=== PATIENT | male | born 1980 ===

== ENCOUNTER 2016-08-13 16:35 | Emergency (ER) | payer MEDICAID, OTHER ==
[2016-08-13 16:44] VITALS: BP 155/94; PULSE 100; RESP 24; TEMP 98.2; O2SAT 94
[2016-08-13] MEDS ORDERED: TDAP VACCINE 0.5 ML SUS IM ONE ×2 (17:15→17:18)
[2016-08-13] MEDS ORDERED: IBUPROFEN 600 MG TAB PO ONE (17:15)
[2016-08-13] MEDS ORDERED: IBUPROFEN 600 MG TAB ONE (17:18)
== END 2016-08-13 17:49 | disposition home or self-care (01) | DRG 605 ==
LOC: ED 16:35
DX: S61.412A Laceration without foreign body of left hand, initial encounter (principal)
CPT/HCPCS: 12002; 90471; 90715; 99283; G0168; A6402

== ENCOUNTER 2016-08-18 21:00 | Emergency (ER) | payer MEDICAID, OTHER ==
[2016-08-18 21:10] VITALS: BP 156/100; PULSE 79; RESP 18; TEMP 96.5; O2SAT 95
[2016-08-18] MEDS ORDERED: CEPHALEXIN 250 MG/5 ML BOTTLE ONE (21:18)
[2016-08-18] MEDS ORDERED: CEPHALEXIN 250 MG/5 ML BOTTLE PO ONE (21:19)
== END 2016-08-18 21:28 | disposition home or self-care (01) | DRG 950 ==
LOC: ED 21:00
DX: S61.412D Laceration without foreign body of left hand, subsequent encounter (principal)
CPT/HCPCS: 99282

== ENCOUNTER 2017-03-05 07:07 | Emergency (ER) | payer OTHER ==
[2017-03-05 07:18] VITALS: BP 144/91; PULSE 93; RESP 20; TEMP 96.2; O2SAT 99
[2017-03-05] MEDS ORDERED: ONDANSETRON HCL 4 MG/2 ML SOL IV ONE (07:27)
[2017-03-05] MEDS ORDERED: SODIUM CHLORIDE 0.9% 1000 ML SOL IV ONE (07:27)
[2017-03-05 07:49] LABS: ALBUMIN 3.2 gm/dl (3.4-5.0); CALCIUM 8.3 mg/dl (8.5-10.1); POTASSIUM 3.9 mMol/L (3.5-5.1)
[2017-03-05 07:52] LABS: HEMATOCRIT 49 % (39-53); MEAN CORPUSCULAR HGB CONC 35.3 gm/dl (32.0-36.0); MEAN CORPUSCULAR VOLUME 92 fL (80-100)
[2017-03-05 08:21] LABS: BASOPHILS % (MANUAL) 1 % (0-3); EOSINOPHILS % (MANUAL) 6 % (0-9); LYMPHOCYTES % (MANUAL) 22 % (10-50); NORMAL RBCS NORMAL RBCS
== END 2017-03-05 08:00 | disposition home or self-care (01) | DRG 392 ==
LOC: ED 07:07
DX: A08.4 Viral intestinal infection, unspecified (principal)
CPT/HCPCS: 80053; 85007; 85027; 99283

== ENCOUNTER 2017-05-22 10:40 | Emergency (ER) | payer OTHER ==
[2017-05-22 11:05] VITALS: RESP 16; TEMP 98.1
[2017-05-22 11:48] VITALS: BP 142/87; PULSE 83; O2SAT 99
== END 2017-05-22 11:37 | disposition home or self-care (01) | DRG 563 ==
LOC: ED 10:40
DX: S93.402A Sprain of unspecified ligament of left ankle, initial encounter (principal)
CPT/HCPCS: 73600; 99282

== ENCOUNTER 2017-07-18 16:40 | Emergency (ER) | payer OTHER ==
[2017-07-18 17:08] VITALS: RESP 20
[2017-07-18 17:55] VITALS: BP 132/85; PULSE 94; TEMP 98; O2SAT 95
== END 2017-07-18 19:04 | disposition home or self-care (01) | DRG 392 ==
LOC: ED 16:40
DX: A08.4 Viral intestinal infection, unspecified (principal); Z72.0 Tobacco use
CPT/HCPCS: 99282

== ENCOUNTER 2017-08-14 19:48 | Emergency (ER) | payer OTHER ==
[2017-08-14 20:32] VITALS: BP 161/108; PULSE 90; RESP 20; TEMP 97.4; O2SAT 99
[2017-08-14] MEDS ORDERED: CYCLOBENZAPRINE 10 MG TAB PO ONE (21:05)
[2017-08-14] MEDS ORDERED: CYCLOBENZAPRINE 10 MG TAB ONE (21:09)
== END 2017-08-14 21:13 | disposition home or self-care (01) | DRG 552 ==
LOC: ED 19:48
DX: M54.9 Dorsalgia, unspecified (principal)
CPT/HCPCS: 72120; 99282; A9270-GY

== ENCOUNTER 2017-10-21 11:36 | Emergency (ER) | payer OTHER ==
[2017-10-21] MEDS ORDERED: KETOROLAC TROMETHAMINE 30 MG/ML SOL ONE (12:05)
[2017-10-21] MEDS ORDERED: CYCLOBENZAPRINE 10 MG TAB ONE (12:05)
[2017-10-21] MEDS ORDERED: KETOROLAC TROMETHAMINE 30 MG/ML SOL IM ONE (12:21)
[2017-10-21] MEDS ORDERED: CYCLOBENZAPRINE 10 MG TAB PO ONE (12:21)
[2017-10-21 13:27] VITALS: RESP 18
[2017-10-21 13:28] VITALS: BP 148/97; PULSE 99; TEMP 98; O2SAT 95
== END 2017-10-21 13:15 | disposition home or self-care (01) | DRG 552 ==
LOC: ED 11:36
DX: M54.40 Lumbago with sciatica, unspecified side (principal)
CPT/HCPCS: 72131; 96372; 99283; J1885; A9270-GY; E0114

== ENCOUNTER 2017-12-22 15:45 | Emergency (ER) | payer OTHER ==
[2017-12-22 16:34] VITALS: BP 134/87; RESP 18; TEMP 96.9; O2SAT 96
[2017-12-22 17:08] VITALS: PULSE 86
== END 2017-12-22 17:05 | disposition home or self-care (01) | DRG 563 ==
LOC: ED 15:45
DX: S93.421A Sprain of deltoid ligament of right ankle, initial encounter (principal)
CPT/HCPCS: 73610; 99282; L4350

== ENCOUNTER 2017-12-30 10:30 | Emergency (ER) | payer SELFPAY ==
[2017-12-30 10:39] VITALS: RESP 18; TEMP 98.4
[2017-12-30] MEDS ORDERED: SODIUM CHLORIDE 0.9% 1000ML 1,000 ML IV ONE ×2 (10:43→10:45)
[2017-12-30] MEDS ORDERED: ONDANSETRON HCL 4 MG/2 ML SOL IV ONE (10:43)
[2017-12-30] MEDS ORDERED: ONDANSETRON HCL 4 MG/2 ML SOL ONE (10:44)
[2017-12-30 10:58] LABS: BASOPHILS % (AUTO) 1 % (0-3); EOSINOPHILS % (AUTO) 3 % (0-9); HEMATOCRIT 47 % (39-53); HEMOGLOBIN 15.9 gm/dl (13.5-17.7); LYMPHOCYTES % (AUTO) 31.7 % (10-50); MEAN CORPUSCULAR HGB CONC 33.8 gm/dl (32.0-36.0); MEAN CORPUSCULAR VOLUME 95 fL (80-100); MONOCYTES % (AUTO) 6.2 % (0-12); NEUTROPHILS % (AUTO) 58.1 % (37-80)
[2017-12-30] MEDS ORDERED: SODIUM CHLORIDE 0.9% FLUSH 10 ML SOL IV PRN (10:59)
[2017-12-30 11:06] LABS: ALBUMIN 2.7 gm/dl (3.4-5.0); BILIRUBIN,TOTAL 0.5 mg/dl (0.2-1.0); CALCIUM 7.8 mg/dl (8.5-10.1); CARBON DIOXIDE 19.5 mEq/L (21-32); CREATININE 0.84 mg/dl (0.80-1.30); POTASSIUM 3.4 mMol/L (3.5-5.1); TOTAL PROTEIN 7.3 gm/dl (6.4-8.2)
[2017-12-30 12:11] VITALS: BP 123/79; PULSE 74; O2SAT 91
== END 2017-12-30 12:00 | disposition home or self-care (01) | DRG 392 ==
LOC: ED 10:30
DX: R11.2 Nausea with vomiting, unspecified (principal); R19.7 Diarrhea, unspecified; K52.9 Noninfective gastroenteritis and colitis, unspecified
CPT/HCPCS: 80053; 85025; 96365; 96374; 99283; 99284; J2405

== ENCOUNTER 2018-01-01 18:30 | Emergency (ER) | payer SELFPAY ==
[2018-01-01 18:48] VITALS: RESP 20; TEMP 96.7
[2018-01-01 19:32] VITALS: BP 136/75; PULSE 90; O2SAT 97
== END 2018-01-01 19:25 | disposition home or self-care (01) | DRG 392 ==
LOC: ED 18:30
DX: A08.4 Viral intestinal infection, unspecified (principal)
CPT/HCPCS: 99282

== ENCOUNTER 2018-01-30 14:59 | Emergency (ER) | payer SELFPAY ==
[2018-01-30 15:58] VITALS: TEMP 98.3
[2018-01-30 16:12] LABS: HEMATOCRIT 48 % (39-53); HEMOGLOBIN 16.5 gm/dl (13.5-17.7); MEAN CORPUSCULAR HGB CONC 34.1 gm/dl (32.0-36.0); MEAN CORPUSCULAR VOLUME 94 fL (80-100)
[2018-01-30 16:18] LABS: ALBUMIN 2.8 gm/dl (3.4-5.0); BILIRUBIN,TOTAL 0.5 mg/dl (0.2-1.0); CALCIUM 8.1 mg/dl (8.5-10.1); CARBON DIOXIDE 24.5 mEq/L (21-32); CREATININE 0.95 mg/dl (0.80-1.30); TOTAL PROTEIN 7.6 gm/dl (6.4-8.2)
[2018-01-30 16:37] LABS: BAND NEUTROPHILS % (MANUAL) 0 %; BASOPHILS % (MANUAL) 0 % (0-3); EOSINOPHILS % (MANUAL) 1 % (0-9); LYMPHOCYTES % (MANUAL) 30 % (10-50); MONOCYTES % (MANUAL) 3 % (0-12); NEUTROPHILS % (MANUAL) 66 % (37-80)
[2018-01-30 16:38] LABS: NORMAL RBCS PRESENT
[2018-01-30 17:42] VITALS: BP 151/86; PULSE 79; RESP 16; O2SAT 98
== END 2018-01-30 17:05 | disposition home or self-care (01) | DRG 948 ==
LOC: ED 14:59
DX: R60.0 Localized edema (principal)
CPT/HCPCS: 80053; 83880; 85007; 85027; 85378; 99282; 99283

== ENCOUNTER 2018-03-01 17:02 | Emergency (ER) | payer BC ==
[2018-03-01 17:21] VITALS: RESP 16; TEMP 97.6
[2018-03-01] MEDS ORDERED: SODIUM CHLORIDE 0.9% 1000ML 1,000 ML IV ONE (17:28)
[2018-03-01] MEDS ORDERED: NOVOLOG 70/30 FLEXPEN SC ONE (17:32)
[2018-03-01] MEDS ORDERED: NOVOLOG FLEXPEN SC ONE (17:35)
[2018-03-01 17:40] LABS: CALCIUM 8.5 mg/dl (8.5-10.1); CREATININE 1.63 mg/dl (0.80-1.30); POTASSIUM 4.5 mMol/L (3.5-5.1)
[2018-03-01 17:45] LABS: HEMOGLOBIN A1C 11.2 % (4.8-6.0)
[2018-03-01] MEDS ORDERED: LABETALOL HYDROCHLORIDE 5 MG/ML SOL IV ONE ×2 (18:12→18:14)
[2018-03-01 18:16] LABS: BASOPHILS % (AUTO) 1 % (0-3); EOSINOPHILS % (AUTO) 2 % (0-9); HEMATOCRIT 48 % (39-53); HEMOGLOBIN 15.7 gm/dl (13.5-17.7); LYMPHOCYTES % (AUTO) 26.7 % (10-50); MEAN CORPUSCULAR HEMOGLOBIN 31.1 pg (27.0-32.0); MEAN CORPUSCULAR HGB CONC 32.5 gm/dl (32.0-36.0); MEAN CORPUSCULAR VOLUME 96 fL (80-100); MONOCYTES % (AUTO) 5.9 % (0-12); NEUTROPHILS % (AUTO) 64.8 % (37-80)
[2018-03-01 18:17] LABS: ALBUMIN 2.8 gm/dl (3.4-5.0); ALKALINE PHOSPHATASE 273 IU/L (46-116); ALT 52 IU/L (14-63); BILIRUBIN,DIRECT 0.1 mg/dl (0.0-0.2); BILIRUBIN,TOTAL 0.6 mg/dl (0.2-1.0); TOTAL PROTEIN 7.6 gm/dl (6.4-8.2)
[2018-03-01 18:29] LABS: APPEARANCE,URINE Clear; BILIRUBIN,URINE NEGATIVE (NEGATIVE); COLOR,URINE Light yellow; GLUCOSE, URINE (UA) 2+ (NEGATIVE); KETONES,URINE NEGATIVE (NEGATIVE); LEUKOCYTE ESTERASE ,URINE NEGATIVE (NEGATIVE); NITRATE,URINE NEGATIVE (NEGATIVE); OCCULT BLOOD,URINE NEGATIVE (NEG-TRACE); UROBILINOGEN,URINE 0.2 (0.2-1.0 EU)
[2018-03-01] MEDS ORDERED: INSULIN GLARGINE, RECOMBINAN 100 U/ML SOL SC ONE ×2 (18:29→21:00)
[2018-03-01 18:43] LABS: ABG PH 7.39 (7.35-7.45)
[2018-03-01] MEDS ORDERED: AMLODIPINE 5 MG TAB ONE (18:46)
[2018-03-01] MEDS ORDERED: LISINOPRIL 20 MG TAB ONE (18:47)
[2018-03-01 18:50] LABS: BACTERIA NEGATIVE (< 1+); CRYSTALS NEGATIVE (0-3 AVE/HPF); EPITHELIAL CELLS 0-1 (SQUAMOUS); RBC,URINE NEG (0-3AV/HPF); WBC,URINE NEG (0-5AV/HPF)
[2018-03-01 19:06] LABS: AST 29 IU/L (15-37)
[2018-03-01 20:22] VITALS: BP 132/96; PULSE 80; O2SAT 92
[2018-03-02] MEDS ORDERED: LISINOPRIL 20 MG TAB PO SCH (09:00)
[2018-03-02] MEDS ORDERED: AMLODIPINE 5 MG TAB PO ONE (18:36)
== END 2018-03-01 20:15 | disposition home or self-care (01) ==
LOC: ED 17:02
DX: E11.9 Type 2 diabetes mellitus without complications (principal); I16.9 Hypertensive crisis, unspecified
CPT/HCPCS: 36600; 80048; 80076; 81001; 82009; 82803; 82962; 83036; 85025; 96365; 96372; 96374; 99284; J1815; J1817; A9270-GY; J3490

== ENCOUNTER 2018-07-29 16:22 | Emergency (ER) | payer BC, MEDICAID, OTHER ==
[2018-07-29 16:33] VITALS: BP 137/83; PULSE 90; RESP 18; TEMP 97.3; O2SAT 97
== END 2018-07-29 18:03 | disposition home or self-care (01) | DRG 607 ==
LOC: ED 16:22
DX: R21 Rash and other nonspecific skin eruption (principal); Z79.4 Long term (current) use of insulin
CPT/HCPCS: 99282